=== PATIENT | female | born 1945 | race Caucasian/White ===

== ENCOUNTER 2022-12-08 16:54 | Inpatient (IN) | payer MEDICARE ==
[2022-12-08] MEDS ORDERED: Senokot S 8.6-50 MG TAB PO PRN (20:17)
[2022-12-08 21:20] LABS: Magnesium 2.1 mg/dL (1.6-2.6); Troponin I Less than 0.010 ng/mL (< 0.028)
[2022-12-08] MEDS: Pregabalin 25 MG CAP PO SCH (22:25)
[2022-12-08] MEDS: Zinc Oxide 56.7 GM TUBE TP SCH (22:26)
[2022-12-08] MEDS: Sodium Chloride 0.9% 1,000 ML IV SCH (22:26)
[2022-12-08] MEDS: Carvedilol 25 MG TAB PO SCH (22:26)
[2022-12-08] MEDS: Atorvastatin Calcium 40 MG TAB PO SCH (22:26)
[2022-12-09 04:58] LABS: #Basophils 0.1 10x3/uL (0.0-0.2); #Eosinphils 0.1 10x3/uL (0.0-0.5); #Monocytes 0.9 10x3/uL (0.0-1.1); %Basophils 0.8 % (0.0-2.0); %Eosinophils 1.3 % (0.0-6.0); %Lymphocytes 16.2 % (18.0-47.0); %Monocytes 8.7 % (0.0-10.0); %Neutrophils 72.5 % (40.0-75.0); Hemoglobin 9.9 g/dL (12.0-15.5); Mean Corpuscular HGB CONC 32.9 g/dL (32.0-36.0); Mean Corpuscular Hemoglobin 28.9 pg (27.0-33.0); Mean Corpuscular Volume 87.8 fl (81.6-98.3); Mean Platelet Volume 10.7 fl (7.4-10.4); Platelet Count 298 10x3/uL (150-450); RBC Distribution Width 16.2 % (11.5-14.5); Red Blood Cell (RBC) Count 3.43 10x6/uL (3.90-5.03); White Blood Cell (WBC) Count 9.7 10x3/uL (3.5-10.5)
[2022-12-09 05:13] LABS: Anion Gap 14 mmol/L (10-20); BUN (Urea Nitrogen) 23 mg/dL (9.8-20.1); Calc. Creatinine Clearance 31 mL/min (70-130); Calcium 7.4 mg/dL (7.8-10.44); Carbon Dioxide 24 mmol/L (23-31); Cardiac Risk 4.1 (Less than 4.5); Chloride 107 mmol/L (98-107); Cholesterol 103 mg/dl (< 200 Desired); Estimated GFR 26; Glucose 94 mg/dL (83-110); HDL Cholesterol 25 mg/dL (>60 Neg Risk); LDL Cholesterol, Calculated 59 mg/dL; Magnesium 2.1 mg/dL (1.6-2.6); Potassium 4.1 mmol/L (3.5-5.1); Sodium 141 mmol/L (136-145); Triglycerides 96 mg/dL (Less than 150)
[2022-12-09] MEDS: Levothyroxine Sodium 100 MCG TAB PO SCH (06:30)
[2022-12-09] MEDS: Atorvastatin Calcium 40 MG TAB PO SCH ×2 (07:22→22:15)
[2022-12-09] MEDS: Carvedilol 25 MG TAB PO SCH ×3 (07:23→22:16)
[2022-12-09] MEDS: Pregabalin 25 MG CAP PO SCH ×4 (07:23→22:15)
[2022-12-09] MEDS: Aspirin 81 mg Enteric Coated Tablet PO SCH (11:19)
[2022-12-09] MEDS: Citalopram 20 MG TAB PO SCH (11:19)
[2022-12-09] MEDS: Polyethylene Glycol 3350 17 GM Packet PO SCH (11:19)
[2022-12-09] MEDS: Sodium Chloride 0.9% 1,000 ML IV SCH (11:23)
[2022-12-09] MEDS: Zinc Oxide 56.7 GM TUBE TP SCH ×3 (11:23→22:16)
[2022-12-09] MEDS: Acetaminophen 325 MG TAB PO PRN (13:11)
[2022-12-10 04:28] LABS: #Basophils 0.1 10x3/uL (0.0-0.2); #Eosinphils 0.1 10x3/uL (0.0-0.5); #Neutrophils 5.5 10x3/uL (1.5-8.4); %Basophils 1.4 % (0.0-2.0); %Eosinophils 1.5 % (0.0-6.0); %Lymphocytes 17.9 % (18.0-47.0); %Monocytes 11.8 % (0.0-10.0); Hemoglobin 9.2 g/dL (12.0-15.5); Mean Corpuscular HGB CONC 32.5 g/dL (32.0-36.0); Mean Corpuscular Hemoglobin 28.6 pg (27.0-33.0); Mean Corpuscular Volume 87.9 fl (81.6-98.3); Mean Platelet Volume 11.1 fl (7.4-10.4); Platelet Count 269 10x3/uL (150-450); RBC Distribution Width 16.2 % (11.5-14.5); Red Blood Cell (RBC) Count 3.22 10x6/uL (3.90-5.03); White Blood Cell (WBC) Count 8.1 10x3/uL (3.5-10.5)
[2022-12-10 04:39] LABS: Anion Gap 13 mmol/L (10-20); BUN (Urea Nitrogen) 23 mg/dL (9.8-20.1); Calc. Creatinine Clearance 31 mL/min (70-130); Calcium 7.2 mg/dL (7.8-10.44); Carbon Dioxide 22 mmol/L (23-31); Chloride 109 mmol/L (98-107); Estimated GFR 26; Glucose 83 mg/dL (83-110); Potassium 3.9 mmol/L (3.5-5.1); Sodium 140 mmol/L (136-145)
[2022-12-10 04:45] LABS: Troponin I Less than 0.010 ng/mL (< 0.028)
[2022-12-10] MEDS: Levothyroxine Sodium 100 MCG TAB PO SCH (05:03)
[2022-12-10] MEDS ORDERED: Fentanyl 100 MCG/2 ML VIAL SLOW IVP SCH (05:45)
[2022-12-10] MEDS ORDERED: Gabapentin 100 MG CAP PO SCH (09:00)
[2022-12-10] MEDS: Zinc Oxide 56.7 GM TUBE TP SCH ×2 (10:20→14:49)
[2022-12-10] MEDS: Citalopram 20 MG TAB PO SCH (10:22)
[2022-12-10] MEDS: Pregabalin 50 MG CAP PO SCH ×3 (10:22→20:56)
[2022-12-10] MEDS: Polyethylene Glycol 3350 17 GM Packet PO SCH (10:22)
[2022-12-10] MEDS: Carvedilol 25 MG TAB PO SCH ×2 (10:22→20:56)
[2022-12-10] MEDS: Aspirin 81 mg Enteric Coated Tablet PO SCH (10:22)
[2022-12-10 10:38] LABS: Bilirubin Neg (Negative); Blood, Urine Negative (Negative); Clarity Clear (Clear); Glucose, Urine (Dipstick) Normal (Negative); Ketone, Urine Negative (Negative); Leukocyte 25 (Negative); Nitrite Negative (Negative); Protein, Urine (Dipstick) 100 mg/dl (Neg-Trace); Specific Gravity, Urine 1.015 (1.005-1.030)
[2022-12-10 10:49] LABS: Bacteria/HPF 3+ HPF (None Seen); CAUTI Indications for Culture Alt mental st,lethar; RBC/HPF 0-3 HPF (0-3); WBC/HPF 0-3 HPF (0-3)
[2022-12-10 10:51] LABS: Urine Culture Reflex No No
[2022-12-10] MEDS: cefTRIAXone\\ROCEPHIN 1 GM in Sodium Chloride 0.9% 100 ML IVPB SCH (13:48)
[2022-12-10] MEDS: Atorvastatin Calcium 40 MG TAB PO SCH (20:56)
[2022-12-10] MEDS: Acetaminophen 325 MG TAB PO PRN (20:56)
[2022-12-11] MEDS: Zinc Oxide 56.7 GM TUBE TP SCH ×4 (00:20→22:27)
[2022-12-11] MEDS: Albumin 25% 25 GM/100 ML BOT IVPB SCH ×5 (00:26→22:27)
[2022-12-11] MEDS: Levothyroxine Sodium 100 MCG TAB PO SCH (06:20)
[2022-12-11 08:47] LABS: #Basophils 0.1 10x3/uL (0.0-0.2); #Eosinphils 0.1 10x3/uL (0.0-0.5); #Monocytes 0.8 10x3/uL (0.0-1.1); #Neutrophils 4.6 10x3/uL (1.5-8.4); %Basophils 0.9 % (0.0-2.0); %Eosinophils 0.9 % (0.0-6.0); %Lymphocytes 21.1 % (18.0-47.0); %Monocytes 11.7 % (0.0-10.0); Hemoglobin 8.4 g/dL (12.0-15.5); Mean Corpuscular HGB CONC 32.7 g/dL (32.0-36.0); Mean Corpuscular Hemoglobin 28.8 pg (27.0-33.0); Mean Platelet Volume 11.1 fl (7.4-10.4); Platelet Count 209 10x3/uL (150-450); RBC Distribution Width 16.4 % (11.5-14.5); Red Blood Cell (RBC) Count 2.92 10x6/uL (3.90-5.03)
[2022-12-11 08:57] LABS: Anion Gap 15 mmol/L (10-20); BUN (Urea Nitrogen) 19 mg/dL (9.8-20.1); Calc. Creatinine Clearance 33 mL/min (70-130); Carbon Dioxide 20 mmol/L (23-31); Chloride 109 mmol/L (98-107); Potassium 4.1 mmol/L (3.5-5.1); Sodium 140 mmol/L (136-145)
[2022-12-11 08:58] LABS: Calcium 7.5 mg/dL (7.8-10.44); Estimated GFR 28; Glucose 99 mg/dL (83-110)
[2022-12-11] MEDS ORDERED: valACYclovir 500 MG TAB PO SCH (09:00)
[2022-12-11] MEDS: Pregabalin 50 MG CAP PO SCH ×3 (09:44→22:26)
[2022-12-11] MEDS: Citalopram 20 MG TAB PO SCH (09:45)
[2022-12-11] MEDS: Aspirin 81 mg Enteric Coated Tablet PO SCH (09:45)
[2022-12-11] MEDS: Polyethylene Glycol 3350 17 GM Packet PO SCH (09:49)
[2022-12-11] MEDS: Carvedilol 25 MG TAB PO SCH ×2 (09:49→22:26)
[2022-12-11] MEDS: cefTRIAXone\\ROCEPHIN 1 GM in Sodium Chloride 0.9% 100 ML IVPB SCH (12:47)
[2022-12-11] MEDS: Atorvastatin Calcium 40 MG TAB PO SCH (22:26)
[2022-12-12 03:40] LABS: #Basophils 0.1 10x3/uL (0.0-0.2); #Eosinphils 0.1 10x3/uL (0.0-0.5); #Monocytes 0.8 10x3/uL (0.0-1.1); #Neutrophils 7.5 10x3/uL (1.5-8.4); %Basophils 0.8 % (0.0-2.0); %Eosinophils 0.7 % (0.0-6.0); %Lymphocytes 11.9 % (18.0-47.0); %Neutrophils 77.8 % (40.0-75.0); Hemoglobin 8.6 g/dL (12.0-15.5); Mean Corpuscular HGB CONC 32.7 g/dL (32.0-36.0); Mean Corpuscular Hemoglobin 28.9 pg (27.0-33.0); Mean Corpuscular Volume 88.3 fl (81.6-98.3); Mean Platelet Volume 10.3 fl (7.4-10.4); Platelet Count 209 10x3/uL (150-450); RBC Distribution Width 16.8 % (11.5-14.5); Red Blood Cell (RBC) Count 2.98 10x6/uL (3.90-5.03); White Blood Cell (WBC) Count 9.7 10x3/uL (3.5-10.5)
[2022-12-12 03:49] LABS: Anion Gap 13 mmol/L (10-20); BUN (Urea Nitrogen) 18 mg/dL (9.8-20.1); Calc. Creatinine Clearance 34 mL/min (70-130); Calcium 7.7 mg/dL (7.8-10.44); Carbon Dioxide 23 mmol/L (23-31); Chloride 110 mmol/L (98-107); Estimated GFR 30; Glucose 159 mg/dL (83-110); Potassium 3.7 mmol/L (3.5-5.1); Sodium 142 mmol/L (136-145)
[2022-12-12] MEDS: Albumin 25% 25 GM/100 ML BOT IVPB SCH ×3 (05:40→18:09)
[2022-12-12] MEDS: Levothyroxine Sodium 100 MCG TAB PO SCH (05:40)
[2022-12-12] MEDS: Citalopram 20 MG TAB PO SCH (10:00)
[2022-12-12] MEDS: Pregabalin 50 MG CAP PO SCH ×3 (10:01→21:15)
[2022-12-12] MEDS: Aspirin 81 mg Enteric Coated Tablet PO SCH (10:01)
[2022-12-12] MEDS: Polyethylene Glycol 3350 17 GM Packet PO SCH (10:03)
[2022-12-12] MEDS: Zinc Oxide 56.7 GM TUBE TP SCH ×3 (10:03→21:46)
[2022-12-12] MEDS: Carvedilol 25 MG TAB PO SCH ×2 (10:04→21:16)
[2022-12-12] MEDS: Lactated Ringer's 1,000 ML IV SCH ×2 (10:07→21:25)
[2022-12-12] MEDS: cefTRIAXone\\ROCEPHIN 1 GM in Sodium Chloride 0.9% 100 ML IVPB SCH (12:32)
[2022-12-12] MEDS ORDERED: NIFEdipine 10 MG CAP PO SCH (21:00)
[2022-12-12] MEDS: Atorvastatin Calcium 40 MG TAB PO SCH (21:16)
[2022-12-13] MEDS: Acetaminophen 325 MG TAB PO PRN (03:50)
[2022-12-13 05:07] LABS: #Monocytes 0.5 10x3/uL (0.0-1.1); #Neutrophils 7.3 10x3/uL (1.5-8.4); %Basophils 0.3 % (0.0-2.0); %Eosinophils 0.2 % (0.0-6.0); %Lymphocytes 14.9 % (18.0-47.0); %Monocytes 5.3 % (0.0-10.0); %Neutrophils 78.5 % (40.0-75.0); Hemoglobin 8.5 g/dL (12.0-15.5); Mean Corpuscular HGB CONC 32.6 g/dL (32.0-36.0); Mean Corpuscular Hemoglobin 28.7 pg (27.0-33.0); Mean Corpuscular Volume 88.2 fl (81.6-98.3); Mean Platelet Volume 11.4 fl (7.4-10.4); Platelet Count 205 10x3/uL (150-450); RBC Distribution Width 16.9 % (11.5-14.5); Red Blood Cell (RBC) Count 2.96 10x6/uL (3.90-5.03); White Blood Cell (WBC) Count 9.3 10x3/uL (3.5-10.5)
[2022-12-13 05:08] LABS: Anion Gap 16 mmol/L (10-20); BUN (Urea Nitrogen) 22 mg/dL (9.8-20.1); Calc. Creatinine Clearance 31 mL/min (70-130); Calcium 8.3 mg/dL (7.8-10.44); Carbon Dioxide 23 mmol/L (23-31); Chloride 107 mmol/L (98-107); Estimated GFR 27; Glucose 145 mg/dL (83-110); Potassium 3.5 mmol/L (3.5-5.1); Sodium 142 mmol/L (136-145)
[2022-12-13] MEDS: Levothyroxine Sodium 100 MCG TAB PO SCH (05:36)
[2022-12-13] MEDS: Albumin 25% 25 GM/100 ML BOT IVPB SCH ×4 (06:30→23:12)
[2022-12-13] MEDS: Aspirin 81 mg Enteric Coated Tablet PO SCH (09:45)
[2022-12-13] MEDS: Pregabalin 50 MG CAP PO SCH ×3 (10:41→21:30)
[2022-12-13] MEDS: Polyethylene Glycol 3350 17 GM Packet PO SCH (10:41)
[2022-12-13] MEDS: NIFEdipine XL 30 MG TAB PO SCH (10:42)
[2022-12-13] MEDS: Citalopram 20 MG TAB PO SCH (10:42)
[2022-12-13] MEDS: Carvedilol 25 MG TAB PO SCH ×2 (10:42→21:30)
[2022-12-13] MEDS: Lactated Ringer's 1,000 ML IV SCH ×2 (10:43→21:29)
[2022-12-13] MEDS: Zinc Oxide 56.7 GM TUBE TP SCH ×3 (10:43→21:44)
[2022-12-13] MEDS ORDERED: cefTRIAXone\\ROCEPHIN 1 GM VIAL ONE (12:31)
[2022-12-13] MEDS: cefTRIAXone\\ROCEPHIN 1 GM in Sodium Chloride 0.9% 100 ML IVPB SCH (12:35)
[2022-12-13] MEDS: Atorvastatin Calcium 40 MG TAB PO SCH (21:30)
[2022-12-14 05:05] LABS: Anion Gap 15 mmol/L (10-20); BUN (Urea Nitrogen) 28 mg/dL (9.8-20.1); Calc. Creatinine Clearance 28 mL/min (70-130); Calcium 8.4 mg/dL (7.8-10.44); Carbon Dioxide 22 mmol/L (23-31); Chloride 110 mmol/L (98-107); Estimated GFR 23; Glucose 118 mg/dL (83-110); Potassium 3.2 mmol/L (3.5-5.1); Sodium 144 mmol/L (136-145)
[2022-12-14 05:32] LABS: #Monocytes 0.8 10x3/uL (0.0-1.1); #Neutrophils 5.8 10x3/uL (1.5-8.4); %Basophils 0.5 % (0.0-2.0); %Eosinophils 0.2 % (0.0-6.0); %Lymphocytes 19.4 % (18.0-47.0); %Monocytes 9.7 % (0.0-10.0); %Neutrophils 69.6 % (40.0-75.0); Hemoglobin 7.4 g/dL (12.0-15.5); Mean Corpuscular HGB CONC 32.9 g/dL (32.0-36.0); Mean Corpuscular Hemoglobin 29.1 pg (27.0-33.0); Mean Corpuscular Volume 88.6 fl (81.6-98.3); Mean Platelet Volume 11.8 fl (7.4-10.4); Platelet Count 160 10x3/uL (150-450); RBC Distribution Width 17.2 % (11.5-14.5); Red Blood Cell (RBC) Count 2.54 10x6/uL (3.90-5.03); White Blood Cell (WBC) Count 8.3 10x3/uL (3.5-10.5)
[2022-12-14] MEDS: Levothyroxine Sodium 100 MCG TAB PO SCH (05:34)
[2022-12-14] MEDS: Lactated Ringer's 1,000 ML IV SCH ×2 (08:49→15:25)
[2022-12-14] MEDS: Carvedilol 25 MG TAB PO SCH (08:51)
[2022-12-14] MEDS: NIFEdipine XL 30 MG TAB PO SCH (08:51)
[2022-12-14] MEDS: Pregabalin 50 MG CAP PO SCH ×3 (08:52→21:24)
[2022-12-14] MEDS: Aspirin 81 mg Enteric Coated Tablet PO SCH (08:53)
[2022-12-14] MEDS: Citalopram 20 MG TAB PO SCH (08:53)
[2022-12-14] MEDS: Polyethylene Glycol 3350 17 GM Packet PO SCH (09:47)
[2022-12-14] MEDS: Zinc Oxide 56.7 GM TUBE TP SCH ×3 (09:47→21:25)
[2022-12-14] MEDS: cefTRIAXone\\ROCEPHIN 1 GM in Sodium Chloride 0.9% 100 ML IVPB SCH (13:43)
[2022-12-14 13:50] LABS: ALT (SGPT) 6 U/L (8-55); AST (SGOT) 14 U/L (5-34); Albumin 4.1 g/dL (3.4-4.8); Alkaline Phosphatase 62 U/L (40-110); Anion Gap 16 mmol/L (10-20); BUN (Urea Nitrogen) 28 mg/dL (9.8-20.1); Bilirubin, Total 1.3 mg/dL (0.2-1.2); Calc. Creatinine Clearance 28 mL/min (70-130); Calcium 8.3 mg/dL (7.8-10.44); Carbon Dioxide 22 mmol/L (23-31); Chloride 111 mmol/L (98-107); Estimated GFR 23; Glucose 134 mg/dL (83-110); Potassium 3.1 mmol/L (3.5-5.1); Protein, Total 6.1 g/dL (5.8-8.1); Sodium 146 mmol/L (136-145)
[2022-12-14] MEDS: Atorvastatin Calcium 40 MG TAB PO SCH (21:25)
[2022-12-15] MEDS ORDERED: Levothyroxine Sodium 100 MCG TAB ONE (05:32)
[2022-12-15] MEDS: Levothyroxine Sodium 100 MCG TAB PO SCH (05:35)
[2022-12-15 05:47] LABS: #Eosinphils 0.1 10x3/uL (0.0-0.5); #Monocytes 0.9 10x3/uL (0.0-1.1); #Neutrophils 7.7 10x3/uL (1.5-8.4); %Basophils 0.3 % (0.0-2.0); %Eosinophils 0.5 % (0.0-6.0); %Monocytes 8.3 % (0.0-10.0); %Neutrophils 73.1 % (40.0-75.0); Hemoglobin 8.6 g/dL (12.0-15.5); Mean Corpuscular HGB CONC 33.1 g/dL (32.0-36.0); Mean Corpuscular Hemoglobin 29.4 pg (27.0-33.0); Mean Corpuscular Volume 88.7 fl (81.6-98.3); Mean Platelet Volume 11.9 fl (7.4-10.4); Platelet Count 170 10x3/uL (150-450); RBC Distribution Width 17.9 % (11.5-14.5); Red Blood Cell (RBC) Count 2.93 10x6/uL (3.90-5.03); White Blood Cell (WBC) Count 10.6 10x3/uL (3.5-10.5)
[2022-12-15 05:57] LABS: ALT (SGPT) 6 U/L (8-55); AST (SGOT) 12 U/L (5-34); Albumin 4.1 g/dL (3.4-4.8); Alkaline Phosphatase 66 U/L (40-110); Anion Gap 17 mmol/L (10-20); BUN (Urea Nitrogen) 31 mg/dL (9.8-20.1); Bilirubin, Total 1.4 mg/dL (0.2-1.2); Calc. Creatinine Clearance 27 mL/min (70-130); Calcium 8.5 mg/dL (7.8-10.44); Carbon Dioxide 21 mmol/L (23-31); Chloride 112 mmol/L (98-107); Estimated GFR 22; Globulin 2.2 g/dL (2.4-3.5); Glucose 101 mg/dL (83-110); Potassium 3.2 mmol/L (3.5-5.1); Protein, Total 6.3 g/dL (5.8-8.1); Sodium 147 mmol/L (136-145)
[2022-12-15] MEDS ORDERED: Potassium Chloride 20 MEQ in Premix Bag 1 BAG IVPB SCH (08:00)
[2022-12-15] MEDS ORDERED: Furosemide 40 MG/4 ML VIAL SLOW IVP SCH (08:00)
[2022-12-15] MEDS: Polyethylene Glycol 3350 17 GM Packet PO SCH (08:33)
[2022-12-15] MEDS: Citalopram 20 MG TAB PO SCH (08:36)
[2022-12-15] MEDS: Aspirin 81 mg Enteric Coated Tablet PO SCH (08:37)
[2022-12-15] MEDS: Zinc Oxide 56.7 GM TUBE TP SCH ×2 (10:04→17:00)
[2022-12-15] MEDS: Pregabalin 50 MG CAP PO SCH (12:31)
[2022-12-15] MEDS: Carvedilol 25 MG TAB PO SCH (18:35)
[2022-12-15] MEDS: Atorvastatin Calcium 40 MG TAB PO SCH (22:24)
[2022-12-15] MEDS: Acetaminophen 325 MG TAB PO PRN (22:24)
[2022-12-16] MEDS: Zinc Oxide 56.7 GM TUBE TP SCH ×4 (03:30→22:02)
[2022-12-16] MEDS: Levothyroxine Sodium 100 MCG TAB PO SCH (07:10)
[2022-12-16] MEDS: Pregabalin 50 MG CAP PO SCH (09:11)
[2022-12-16] MEDS: Carvedilol 25 MG TAB PO SCH ×2 (09:12→21:51)
[2022-12-16] MEDS: Aspirin 81 mg Enteric Coated Tablet PO SCH (09:12)
[2022-12-16] MEDS: Polyethylene Glycol 3350 17 GM Packet PO SCH (09:42)
[2022-12-16] MEDS ORDERED: Morphine 2 MG/ML VIAL SLOW IVP SCH (18:00)
[2022-12-16] MEDS: Atorvastatin Calcium 40 MG TAB PO SCH (21:51)
[2022-12-17 05:04] LABS: Anion Gap 18 mmol/L (10-20); BUN (Urea Nitrogen) 50 mg/dL (9.8-20.1); Bilirubin, Total 1.1 mg/dL (0.2-1.2); Calc. Creatinine Clearance 26 mL/min (70-130); Calcium 8.2 mg/dL (7.8-10.44); Carbon Dioxide 21 mmol/L (23-31); Chloride 110 mmol/L (98-107); Estimated GFR 21; Glucose 109 mg/dL (83-110); Potassium 3.3 mmol/L (3.5-5.1); Sodium 146 mmol/L (136-145)
[2022-12-17 05:05] LABS: ALT (SGPT) 7 U/L (8-55); AST (SGOT) 11 U/L (5-34)
[2022-12-17] MEDS: Levothyroxine Sodium 100 MCG TAB PO SCH (05:56)
[2022-12-17] MEDS: Polyethylene Glycol 3350 17 GM Packet PO SCH ×2 (09:00→09:29)
[2022-12-17] MEDS: NIFEdipine XL 30 MG TAB PO SCH (09:28)
[2022-12-17] MEDS: Carvedilol 25 MG TAB PO SCH ×2 (09:28→21:13)
[2022-12-17] MEDS: Aspirin 81 mg Enteric Coated Tablet PO SCH (09:28)
[2022-12-17] MEDS: Pregabalin 50 MG CAP PO SCH (09:28)
[2022-12-17] MEDS: Zinc Oxide 56.7 GM TUBE TP SCH ×3 (09:29→21:13)
[2022-12-17] MEDS: Lactated Ringer's 1,000 ML IV SCH (17:53)
[2022-12-17] MEDS: Atorvastatin Calcium 40 MG TAB PO SCH (21:13)
[2022-12-17 23:06] LABS: Bilirubin Neg (Negative); Blood, Urine 250 (Negative); Clarity Slightly Cloudy (Clear); Glucose, Urine (Dipstick) Normal (Negative); Ketone, Urine Negative (Negative); Leukocyte 500 (Negative); Nitrite Negative (Negative); Protein, Urine (Dipstick) 500 mg/dl (Neg-Trace); Specific Gravity, Urine 1.015 (1.005-1.030); Urobilinogen Normal mg/dL (Less than 2)
[2022-12-17 23:19] LABS: Bacteria/HPF Rare-Few HPF (None Seen); Squamous Epithelial 0-3 HPF (0-3); WBC/HPF 21-50 HPF (0-3)
[2022-12-18 00:59] VITALS: BMI 29.9
[2022-12-18 05:46] LABS: #Eosinphils 0.4 10x3/uL (0.0-0.5); #Monocytes 0.9 10x3/uL (0.0-1.1); #Neutrophils 5.9 10x3/uL (1.5-8.4); %Basophils 0.4 % (0.0-2.0); %Eosinophils 3.9 % (0.0-6.0); %Lymphocytes 22.6 % (18.0-47.0); %Monocytes 9.1 % (0.0-10.0); %Neutrophils 63.2 % (40.0-75.0); Hemoglobin 8.5 g/dL (12.0-15.5); Mean Corpuscular HGB CONC 33.2 g/dL (32.0-36.0); Mean Corpuscular Hemoglobin 29.4 pg (27.0-33.0); Mean Corpuscular Volume 88.6 fl (81.6-98.3); Mean Platelet Volume 11.8 fl (7.4-10.4); Platelet Count 160 10x3/uL (150-450); RBC Distribution Width 18.5 % (11.5-14.5); Red Blood Cell (RBC) Count 2.89 10x6/uL (3.90-5.03); White Blood Cell (WBC) Count 9.4 10x3/uL (3.5-10.5)
[2022-12-18] MEDS: Levothyroxine Sodium 100 MCG TAB PO SCH (05:50)
[2022-12-18 05:54] LABS: Anion Gap 14 mmol/L (10-20); BUN (Urea Nitrogen) 59 mg/dL (9.8-20.1); Calc. Creatinine Clearance 25 mL/min (70-130); Calcium 8.2 mg/dL (7.8-10.44); Carbon Dioxide 21 mmol/L (23-31); Chloride 109 mmol/L (98-107); Estimated GFR 20; Glucose 105 mg/dL (83-110); Potassium 3.3 mmol/L (3.5-5.1); Sodium 141 mmol/L (136-145)
[2022-12-18] MEDS ORDERED: Potassium Chloride 20 MEQ TAB PO SCH ×2 (08:00→14:00)
[2022-12-18] MEDS: Polyethylene Glycol 3350 17 GM Packet PO SCH (10:43)
[2022-12-18] MEDS: Carvedilol 25 MG TAB PO SCH ×2 (12:00→20:02)
[2022-12-18] MEDS: Pregabalin 50 MG CAP PO SCH (12:00)
[2022-12-18] MEDS: Aspirin 81 mg Enteric Coated Tablet PO SCH (12:00)
[2022-12-18] MEDS: NIFEdipine XL 30 MG TAB PO SCH (13:09)
[2022-12-18] MEDS: Zinc Oxide 56.7 GM TUBE TP SCH ×3 (13:10→20:02)
[2022-12-18] MEDS: Lactated Ringer's 1,000 ML IV SCH (17:30)
[2022-12-18] MEDS: Atorvastatin Calcium 40 MG TAB PO SCH (20:02)
[2022-12-19] MEDS ORDERED: Furosemide 20 MG/2 ML VIAL SLOW IVP SCH (04:15)
[2022-12-19] MEDS: Levothyroxine Sodium 100 MCG TAB PO SCH (05:42)
[2022-12-19 05:57] LABS: Anion Gap 15 mmol/L (10-20); BUN (Urea Nitrogen) 51 mg/dL (9.8-20.1); Calc. Creatinine Clearance 28 mL/min (70-130); Calcium 8.3 mg/dL (7.8-10.44); Carbon Dioxide 22 mmol/L (23-31); Chloride 110 mmol/L (98-107); Estimated GFR 23; Glucose 132 mg/dL (83-110); Sodium 143 mmol/L (136-145)
[2022-12-19 06:11] LABS: #Basophils 0.1 10x3/uL (0.0-0.2); #Eosinphils 0.3 10x3/uL (0.0-0.5); #Monocytes 0.8 10x3/uL (0.0-1.1); #Neutrophils 7.2 10x3/uL (1.5-8.4); %Basophils 0.6 % (0.0-2.0); %Eosinophils 3.4 % (0.0-6.0); %Lymphocytes 15.1 % (18.0-47.0); %Monocytes 7.8 % (0.0-10.0); %Neutrophils 72.2 % (40.0-75.0); Hemoglobin 9.2 g/dL (12.0-15.5); Mean Corpuscular HGB CONC 32.6 g/dL (32.0-36.0); Mean Corpuscular Hemoglobin 29.1 pg (27.0-33.0); Mean Corpuscular Volume 89.2 fl (81.6-98.3); Platelet Count 177 10x3/uL (150-450); RBC Distribution Width 18.7 % (11.5-14.5); Red Blood Cell (RBC) Count 3.16 10x6/uL (3.90-5.03)
[2022-12-19] MEDS: Lactated Ringer's 1,000 ML IV SCH (09:22)
[2022-12-19] MEDS: NIFEdipine XL 30 MG TAB PO SCH (09:24)
[2022-12-19] MEDS: Aspirin 81 mg Enteric Coated Tablet PO SCH (09:24)
[2022-12-19] MEDS: Polyethylene Glycol 3350 17 GM Packet PO SCH (09:25)
[2022-12-19] MEDS: Pregabalin 50 MG CAP PO SCH (09:25)
[2022-12-19] MEDS: Carvedilol 25 MG TAB PO SCH ×2 (09:25→20:17)
[2022-12-19] MEDS: Zinc Oxide 56.7 GM TUBE TP SCH ×3 (09:26→20:17)
[2022-12-19] MEDS: Atorvastatin Calcium 40 MG TAB PO SCH (20:17)
[2022-12-20] MEDS: Lactated Ringer's 1,000 ML IV SCH ×2 (03:30→18:44)
[2022-12-20 05:28] LABS: Anion Gap 15 mmol/L (10-20); BUN (Urea Nitrogen) 44 mg/dL (9.8-20.1); Calc. Creatinine Clearance 28 mL/min (70-130); Carbon Dioxide 21 mmol/L (23-31); Chloride 111 mmol/L (98-107); Estimated GFR 23; Glucose 104 mg/dL (83-110); Potassium 3.8 mmol/L (3.5-5.1); Sodium 143 mmol/L (136-145)
[2022-12-20 05:49] LABS: #Basophils 0.1 10x3/uL (0.0-0.2); #Eosinphils 0.4 10x3/uL (0.0-0.5); #Monocytes 0.8 10x3/uL (0.0-1.1); #Neutrophils 6.4 10x3/uL (1.5-8.4); %Basophils 0.5 % (0.0-2.0); %Eosinophils 4.4 % (0.0-6.0); %Lymphocytes 16.4 % (18.0-47.0); %Monocytes 8.3 % (0.0-10.0); %Neutrophils 69.7 % (40.0-75.0); Mean Corpuscular HGB CONC 32.9 g/dL (32.0-36.0); Mean Corpuscular Hemoglobin 29.4 pg (27.0-33.0); Mean Corpuscular Volume 89.3 fl (81.6-98.3); Mean Platelet Volume 11.9 fl (7.4-10.4); Platelet Count 166 10x3/uL (150-450); RBC Distribution Width 19.3 % (11.5-14.5); Red Blood Cell (RBC) Count 2.72 10x6/uL (3.90-5.03); White Blood Cell (WBC) Count 9.1 10x3/uL (3.5-10.5)
[2022-12-20] MEDS: Levothyroxine Sodium 100 MCG TAB PO SCH (06:21)
[2022-12-20] MEDS ORDERED: Megestrol Acetate 400 MG/10 ML UDCUP PO SCH (10:30)
[2022-12-20] MEDS: NIFEdipine XL 30 MG TAB PO SCH (10:39)
[2022-12-20] MEDS: Aspirin 81 mg Enteric Coated Tablet PO SCH (10:39)
[2022-12-20] MEDS: Citalopram 20 MG TAB PO SCH (10:39)
[2022-12-20] MEDS: Pregabalin 50 MG CAP PO SCH (10:39)
[2022-12-20] MEDS: Carvedilol 25 MG TAB PO SCH ×2 (10:40→21:35)
[2022-12-20] MEDS: Polyethylene Glycol 3350 17 GM Packet PO SCH (10:40)
[2022-12-20] MEDS: Zinc Oxide 56.7 GM TUBE TP SCH ×3 (10:40→21:35)
[2022-12-20] MEDS: Atorvastatin Calcium 40 MG TAB PO SCH (21:35)
[2022-12-21] MEDS: Levothyroxine Sodium 100 MCG TAB PO SCH (05:49)
[2022-12-21 06:24] LABS: #Basophils 0.1 10x3/uL (0.0-0.2); #Eosinphils 0.4 10x3/uL (0.0-0.5); #Monocytes 0.8 10x3/uL (0.0-1.1); #Neutrophils 5.9 10x3/uL (1.5-8.4); %Basophils 0.8 % (0.0-2.0); %Lymphocytes 17.7 % (18.0-47.0); %Monocytes 8.8 % (0.0-10.0); %Neutrophils 68.1 % (40.0-75.0); Hemoglobin 8.6 g/dL (12.0-15.5); Mean Corpuscular HGB CONC 31.9 g/dL (32.0-36.0); Mean Corpuscular Hemoglobin 28.8 pg (27.0-33.0); Mean Corpuscular Volume 90.3 fl (81.6-98.3); Mean Platelet Volume 11.3 fl (7.4-10.4); Platelet Count 180 10x3/uL (150-450); RBC Distribution Width 19.4 % (11.5-14.5); Red Blood Cell (RBC) Count 2.99 10x6/uL (3.90-5.03); White Blood Cell (WBC) Count 8.7 10x3/uL (3.5-10.5)
[2022-12-21 06:38] LABS: Anion Gap 17 mmol/L (10-20); BUN (Urea Nitrogen) 39 mg/dL (9.8-20.1); Calc. Creatinine Clearance 30 mL/min (70-130); Calcium 8.2 mg/dL (7.8-10.44); Carbon Dioxide 20 mmol/L (23-31); Chloride 110 mmol/L (98-107); Estimated GFR 25; Glucose 120 mg/dL (83-110); Potassium 3.9 mmol/L (3.5-5.1); Sodium 143 mmol/L (136-145)
[2022-12-21] MEDS ORDERED: Furosemide 40 MG/4 ML VIAL SLOW IVP SCH (08:00)
[2022-12-21] MEDS ORDERED: Megestrol Acetate 400 MG/10 ML UDCUP PO SCH (09:00)
[2022-12-21] MEDS ORDERED: Sodium Bicarbonate Tab 325 MG TAB PO SCH (09:30)
[2022-12-21] MEDS: Pregabalin 50 MG CAP PO SCH (10:46)
[2022-12-21] MEDS: Citalopram 20 MG TAB PO SCH (10:47)
[2022-12-21] MEDS: NIFEdipine XL 30 MG TAB PO SCH (10:47)
[2022-12-21] MEDS: Aspirin 81 mg Enteric Coated Tablet PO SCH (10:48)
[2022-12-21] MEDS: Carvedilol 25 MG TAB PO SCH ×2 (10:48→21:06)
[2022-12-21] MEDS: Polyethylene Glycol 3350 17 GM Packet PO SCH (10:51)
[2022-12-21] MEDS: Zinc Oxide 56.7 GM TUBE TP SCH ×3 (10:52→21:06)
[2022-12-21] MEDS: Sodium Bicarbonate Tab 325 MG TAB PO SCH ×2 (16:12→21:05)
[2022-12-21] MEDS: Atorvastatin Calcium 40 MG TAB PO SCH (21:06)
[2022-12-22 05:37] LABS: Anion Gap 16 mmol/L (10-20); BUN (Urea Nitrogen) 38 mg/dL (9.8-20.1); Calc. Creatinine Clearance 28 mL/min (70-130); Carbon Dioxide 23 mmol/L (23-31); Chloride 110 mmol/L (98-107); Estimated GFR 24; Glucose 99 mg/dL (83-110); Iron 24 ug/dL (50-170); Iron Binding Capacity, Total 146 mcg/dL (265-497); Phosphorus 2.9 mg/dL (2.3-4.7); Potassium 3.7 mmol/L (3.5-5.1); Sodium 145 mmol/L (136-145)
[2022-12-22] MEDS: Levothyroxine Sodium 100 MCG TAB PO SCH (05:55)
[2022-12-22] MEDS ORDERED: Megestrol Acetate 400 MG/10 ML UDCUP PO SCH (09:00)
[2022-12-22] MEDS: NIFEdipine XL 30 MG TAB PO SCH (10:11)
[2022-12-22] MEDS: Aspirin 81 mg Enteric Coated Tablet PO SCH (10:12)
[2022-12-22] MEDS: Carvedilol 25 MG TAB PO SCH (10:12)
[2022-12-22] MEDS: Citalopram 20 MG TAB PO SCH (10:12)
[2022-12-22] MEDS: Pregabalin 50 MG CAP PO SCH (10:12)
[2022-12-22] MEDS: Sodium Bicarbonate Tab 325 MG TAB PO SCH (10:12)
[2022-12-22] MEDS: Zinc Oxide 56.7 GM TUBE TP SCH (10:25)
[2022-12-22] MEDS: Polyethylene Glycol 3350 17 GM Packet PO SCH (10:25)
[2022-12-22] MEDS ORDERED: Iron, Sodium Ferric Gluconate 250 MG in Sodium Chloride 0.9% 250 ML 250 ML IVPB SCH (11:00)
[2022-12-22 16:19] VITALS: BP 112/53; TEMP 98.3
== END 2022-12-22 17:05 | disposition home health service (06) | DRG 64 ==
LOC: CSHTELE 16:54 → INTOOBSV 16:54 → CSHTELE 17:24 → OBSVTOIN 12-10 12:25
PROVIDERS: ADMIT Internal Medicine; ATTEND Internal Medicine
PROC: 30233J1 Transfusion of Nonautologous Serum Albumin into Peripheral Vein, Percutaneous Approach (ICD-10-PCS; principal; 2022-12-10)
DX: I63.9 Cerebral infarction, unspecified (principal); I50.33 Acute on chronic diastolic (congestive) heart failure; J96.21 Acute and chronic respiratory failure with hypoxia; I13.0 Hypertensive heart and chronic kidney disease with heart failure and stage 1 through stage 4 chronic kidney disease, or unspecified chronic kidney disease; N17.9 Acute kidney failure, unspecified; N18.4 Chronic kidney disease, stage 4 (severe); E87.20 Acidosis, unspecified; G93.49 Other encephalopathy; I16.0 Hypertensive urgency; B02.9 Zoster without complications; E78.5 Hyperlipidemia, unspecified; J44.9 Chronic obstructive pulmonary disease, unspecified; C76.2 Malignant neoplasm of abdomen; R41.0 Disorientation, unspecified; F32.A Depression, unspecified; E86.0 Dehydration; R63.8 Other symptoms and signs concerning food and fluid intake; D63.1 Anemia in chronic kidney disease; E87.6 Hypokalemia; R10.9 Unspecified abdominal pain; K57.30 Diverticulosis of large intestine without perforation or abscess without bleeding; R00.1 Bradycardia, unspecified; M06.9 Rheumatoid arthritis, unspecified; E89.0 Postprocedural hypothyroidism; Z20.822 Contact with and (suspected) exposure to COVID-19; Z79.82 Long term (current) use of aspirin; Z79.899 Other long term (current) drug therapy; Z79.890 Hormone replacement therapy; Z86.11 Personal history of tuberculosis; Z98.890 Other specified postprocedural states; Z90.710 Acquired absence of both cervix and uterus; Z90.49 Acquired absence of other specified parts of digestive tract; Z82.49 Family history of ischemic heart disease and other diseases of the circulatory system; Z88.8 Allergy status to other drugs, medicaments and biological substances; Z91.041 Radiographic dye allergy status; Z87.11 Personal history of peptic ulcer disease; Z98.1 Arthrodesis status; Z90.722 Acquired absence of ovaries, bilateral; Z87.891 Personal history of nicotine dependence; Z80.1 Family history of malignant neoplasm of trachea, bronchus and lung; I69.320 Aphasia following cerebral infarction; I69.398 Other sequelae of cerebral infarction; H53.40 Unspecified visual field defects
CPT/HCPCS: 36415; 36416; 70551; 71045; 76705; 78227; 80048; 80053; 80061; 80069; 81001; 82040; 82247; 82274; 82728; 83540; 83550; 83735; 83880; 84145; 84439; 84443; 84450; 84460; 84484; 85025; 87040; 87811; 93005; 93010; 93306; 93880; 94640; 94760; 96372; 96374; 97139; A9537; G0378; J0696; J1650; J1940; J2272; J2916; J3010; J3480; J3490; J7050; J7120; J7611; P9047; U0003; U0005

== ENCOUNTER 2022-12-27 08:20 | Emergency (ER) | payer MEDICARE ==
[2022-12-27 09:29] LABS: #Basophils 0.1 10x3/uL (0.0-0.2); #Eosinphils 0.3 10x3/uL (0.0-0.5); #Monocytes 0.7 10x3/uL (0.0-1.1); #Neutrophils 8.2 10x3/uL (1.5-8.4); %Basophils 0.9 % (0.0-2.0); %Eosinophils 3.2 % (0.0-6.0); %Lymphocytes 10.3 % (18.0-47.0); %Monocytes 6.8 % (0.0-10.0); %Neutrophils 78.2 % (40.0-75.0); Hemoglobin 8.6 g/dL (12.0-15.5); Mean Corpuscular HGB CONC 31.9 g/dL (32.0-36.0); Mean Corpuscular Hemoglobin 29.2 pg (27.0-33.0); Mean Corpuscular Volume 91.5 fl (81.6-98.3); Mean Platelet Volume 11.4 fl (7.4-10.4); Platelet Count 296 10x3/uL (150-450); RBC Distribution Width 20.4 % (11.5-14.5); Red Blood Cell (RBC) Count 2.95 10x6/uL (3.90-5.03); White Blood Cell (WBC) Count 10.5 10x3/uL (3.5-10.5)
[2022-12-27 09:42] LABS: ALT (SGPT) 10 U/L (8-55); AST (SGOT) 14 U/L (5-34); Alkaline Phosphatase 81 U/L (40-110); Anion Gap 16 mmol/L (10-20); BUN (Urea Nitrogen) 40 mg/dL (9.8-20.1); Bilirubin, Total 1.2 mg/dL (0.2-1.2); Calc. Creatinine Clearance 0 mL/min (70-130); Calcium 7.9 mg/dL (7.8-10.44); Carbon Dioxide 23 mmol/L (23-31); Chloride 109 mmol/L (98-107); Estimated GFR 21; Globulin 2.4 g/dL (2.4-3.5); Glucose 110 mg/dL (83-110); Lipase 22 U/L (8-78); Potassium 3.7 mmol/L (3.5-5.1); Protein, Total 5.4 g/dL (5.8-8.1); Sodium 144 mmol/L (136-145)
[2022-12-27 10:57] LABS: Bilirubin Neg (Negative); Blood, Urine 150 (Negative); Clarity Cloudy (Clear); Glucose, Urine (Dipstick) Normal (Negative); Ketone, Urine Negative (Negative); Leukocyte 500 (Negative); Nitrite Negative (Negative); Protein, Urine (Dipstick) 100 mg/dl (Neg-Trace); Specific Gravity, Urine 1.015 (1.005-1.030); Urobilinogen Normal mg/dL (Less than 2)
[2022-12-27 11:28] LABS: WBC/HPF 21-50 HPF (0-3)
[2022-12-27 11:29] LABS: Bacteria/HPF 2+ HPF (None Seen)
== END 2022-12-27 12:29 | disposition home or self-care (01) ==
LOC: CSHERS 08:20
DX: N39.0 Urinary tract infection, site not specified (principal); I13.2 Hypertensive heart and chronic kidney disease with heart failure and with stage 5 chronic kidney disease, or end stage renal disease; N18.4 Chronic kidney disease, stage 4 (severe); I50.9 Heart failure, unspecified; E03.9 Hypothyroidism, unspecified; K21.9 Gastro-esophageal reflux disease without esophagitis; E78.5 Hyperlipidemia, unspecified; E78.00 Pure hypercholesterolemia, unspecified; F17.210 Nicotine dependence, cigarettes, uncomplicated; Z79.899 Other long term (current) drug therapy
CPT/HCPCS: 36415; 71045; 74176; 80053; 81003; 81015; 83605; 83690; 85025; 87077; 87086; 87186

== ENCOUNTER 2023-01-20 05:06 | Inpatient (IN) | payer MEDICARE ==
[2023-01-20 06:25] LABS: SARS-CoV-2 NAA Rapid Test Not Detected (NotDetected)
[2023-01-20 06:39] LABS: #Basophils 0.2 10x3/uL (0.0-0.2); #Eosinphils 0.4 10x3/uL (0.0-0.5); #Monocytes 0.4 10x3/uL (0.0-1.1); #Neutrophils 8.4 10x3/uL (1.5-8.4); %Basophils 1.8 % (0.0-2.0); %Eosinophils 3.7 % (0.0-6.0); %Monocytes 3.8 % (0.0-10.0); %Neutrophils 82.5 % (40.0-75.0); Mean Corpuscular HGB CONC 31.3 g/dL (32.0-36.0); Mean Corpuscular Hemoglobin 30.4 pg (27.0-33.0); Mean Platelet Volume 11.1 fl (7.4-10.4); Platelet Count 271 10x3/uL (150-450); RBC Distribution Width 18.1 % (11.5-14.5); Red Blood Cell (RBC) Count 3.29 10x6/uL (3.90-5.03); White Blood Cell (WBC) Count 10.2 10x3/uL (3.5-10.5)
[2023-01-20] MEDS ORDERED: Furosemide 40 MG/4 ML VIAL ONE (06:39)
[2023-01-20 06:44] LABS: ALT (SGPT) Less than 6 U/L (8-55); Albumin 3.1 g/dL (3.4-4.8); Alkaline Phosphatase 76 U/L (40-110); Anion Gap 17 mmol/L (10-20); BUN (Urea Nitrogen) 45 mg/dL (9.8-20.1); Bilirubin, Total 0.5 mg/dL (0.2-1.2); CK (CPK) 28 U/L (29-168); Calc. Creatinine Clearance 0 mL/min (70-130); Calcium 7.7 mg/dL (7.8-10.44); Carbon Dioxide 18 mmol/L (23-31); Chloride 108 mmol/L (98-107); Estimated GFR 16; Globulin 3.5 g/dL (2.4-3.5); Glucose 150 mg/dL (83-110); Potassium 4.1 mmol/L (3.5-5.1); Protein, Total 6.6 g/dL (5.8-8.1); Sodium 139 mmol/L (136-145)
[2023-01-20 06:58] LABS: AST (SGOT) 7 U/L (5-34)
[2023-01-20] MEDS ORDERED: Ipratropium/Albuterol 3 ML NEB ONE (07:00)
[2023-01-20] MEDS ORDERED: Nitroglycerin 0.4 MG TAB 1 EACH ONE (07:35)
[2023-01-20 07:39] LABS: Bilirubin Neg (Negative); Blood, Urine Negative (Negative); Clarity Clear (Clear); Glucose, Urine (Dipstick) Normal (Negative); Ketone, Urine Negative (Negative); Leukocyte Negative (Negative); Nitrite Negative (Negative); Protein, Urine (Dipstick) 100 mg/dl (Neg-Trace); Urobilinogen Normal mg/dL (Less than 2)
[2023-01-20 07:50] LABS: Lipase 30 U/L (8-78)
[2023-01-20 08:12] LABS: Actual Bicarbonate (HCO3a) 17.8 mEq/L (22-28); Base Excess (BEa) -5.9 mEq/L (-2.0 to +3.0); CO2 Tension 29.7 mmHg (35.0-45.0); Calcium, Ionized (arterial) 1.06 mmol/L (1.12-1.30); Carboxyhemoglobin (COHb) 1.1 gm% (0.0-3.0); O2 Tension (PaO2), arterial 61.2 mmHg (> 70.0); Potassium - ABG Lab 3.9 mmol/L (3.70-5.30); Puncture Site LRA
[2023-01-20 08:15] LABS: ALV-art Gradient 101.315 mmHg (0-20)
[2023-01-20 08:19] LABS: Bacteria/HPF None Seen HPF (None Seen); RBC/HPF None Seen HPF (0-3); Squamous Epithelial 0-3 HPF (0-3); WBC/HPF 0-3 HPF (0-3)
[2023-01-20] MEDS ORDERED: Ondansetron PF 4 MG/2 ML Vial IVP PRN (08:35)
[2023-01-20] MEDS ORDERED: Acetaminophen 650 MG Suppository PR PRN (08:35)
[2023-01-20] MEDS ORDERED: hydrALAZINE 20 MG/ML VIAL SLOW IVP PRN (08:54)
[2023-01-20] MEDS ORDERED: Levothyroxine Sodium 125 MCG TAB PO SCH (09:00)
[2023-01-20] MEDS ORDERED: Levothyroxine Sodium 100 MCG TAB PO SCH (09:00)
[2023-01-20] MEDS: Heparin 5,000 UNITS/ML VIAL SC SCH ×3 (10:38→20:59)
[2023-01-20] MEDS: Citalopram 20 MG TAB PO SCH (11:31)
[2023-01-20] MEDS: Aspirin 81 mg Enteric Coated Tablet PO SCH (11:31)
[2023-01-20] MEDS: Carvedilol 25 MG TAB PO SCH ×2 (11:32→20:58)
[2023-01-20] MEDS: predniSONE 20 MG TAB PO SCH (11:33)
[2023-01-20] MEDS: Ipratropium/Albuterol 3 ML NEB NEB SCH ×2 (13:36→20:04)
[2023-01-20] MEDS: Atorvastatin Calcium 40 MG TAB PO SCH (20:58)
[2023-01-20] MEDS: cefTRIAXone\\ROCEPHIN 1 GM in Sodium Chloride 0.9% 100 ML IVPB SCH (21:00)
[2023-01-20] MEDS: Azithromycin 500 MG in Sodium Chloride 0.9% 250 ML 250 ML IVPB SCH (21:00)
[2023-01-21] MEDS: Ipratropium/Albuterol 3 ML NEB NEB SCH ×4 (02:34→19:13)
[2023-01-21 04:07] LABS: #Monocytes 0.3 10x3/uL (0.0-1.1); %Basophils 0.3 % (0.0-2.0); %Lymphocytes 10.4 % (18.0-47.0); %Monocytes 4.2 % (0.0-10.0); Hemoglobin 9.1 g/dL (12.0-15.5); Mean Corpuscular HGB CONC 31.8 g/dL (32.0-36.0); Mean Corpuscular Hemoglobin 29.9 pg (27.0-33.0); Mean Corpuscular Volume 94.1 fl (81.6-98.3); Mean Platelet Volume 10.6 fl (7.4-10.4); Platelet Count 285 10x3/uL (150-450); RBC Distribution Width 17.8 % (11.5-14.5); Red Blood Cell (RBC) Count 3.04 10x6/uL (3.90-5.03); White Blood Cell (WBC) Count 7.1 10x3/uL (3.5-10.5)
[2023-01-21 04:22] LABS: ALT (SGPT) 7 U/L (8-55); AST (SGOT) 7 U/L (5-34); Albumin 2.7 g/dL (3.4-4.8); Alkaline Phosphatase 63 U/L (40-110); Anion Gap 17 mmol/L (10-20); BUN (Urea Nitrogen) 54 mg/dL (9.8-20.1); Bilirubin, Total 0.3 mg/dL (0.2-1.2); Calc. Creatinine Clearance 15 mL/min (70-130); Calcium 7.5 mg/dL (7.8-10.44); Carbon Dioxide 16 mmol/L (23-31); Chloride 110 mmol/L (98-107); Estimated GFR 14; Globulin 3.2 g/dL (2.4-3.5); Glucose 143 mg/dL (83-110); Potassium 4.3 mmol/L (3.5-5.1); Protein, Total 5.9 g/dL (5.8-8.1); Sodium 139 mmol/L (136-145)
[2023-01-21] MEDS ORDERED: Nitroglycerin 0.4 MG TAB (25 Tab Bottle) ONE (04:58)
[2023-01-21] MEDS ORDERED: Nitroglycerin 2% Ointment 1 INCH/1 GM Packet ONE (04:58)
[2023-01-21] MEDS ORDERED: Nitroglycerin 0.4 MG TAB (25 Tab Bottle) SL SCH (05:00)
[2023-01-21] MEDS ORDERED: Furosemide 100 MG/10 ML VIAL SLOW IVP SCH (05:00)
[2023-01-21] MEDS ORDERED: Nitroglycerin 2% Ointment 1 INCH/1 GM Packet TOP SCH (05:00)
[2023-01-21] MEDS: Furosemide 40 MG/4 ML VIAL ONE ×2 (05:07→05:09)
[2023-01-21 05:52] LABS: Magnesium 2.4 mg/dL (1.6-2.6)
[2023-01-21 05:55] LABS: Troponin I Less than 0.010 ng/mL (< 0.028)
[2023-01-21] MEDS ORDERED: Levothyroxine Sodium 100 MCG TAB PO SCH (06:00)
[2023-01-21] MEDS ORDERED: niCARdipine 25 MG in Sodium Chloride 0.9% 250 ML 250 ML IVPB SCH (06:00)
[2023-01-21] MEDS: methylPREDNISolone Sod Succ 40 MG VIAL IVP SCH ×2 (06:23→12:28)
[2023-01-21 06:33] LABS: ALV-art Gradient 26.825 mmHg (0-20); Actual Bicarbonate (HCO3a) 16.7 mEq/L (22-28); Base Excess (BEa) -6.9 mEq/L (-2.0 to +3.0); CO2 Tension 27.9 mmHg (35.0-45.0); Calcium, Ionized (arterial) 0.93 mmol/L (1.12-1.30); Carboxyhemoglobin (COHb) 1.2 gm% (0.0-3.0); Critical Notified By: CP.PH; O2 Tension (PaO2), arterial 152.2 mmHg (> 70.0); Potassium - ABG Lab 4.4 mmol/L (3.70-5.30); Puncture Site LBA
[2023-01-21] MEDS: Arformoterol 15 MCG/2 ML NEB NEB SCH ×2 (07:58→19:15)
[2023-01-21 08:57] LABS: Troponin I Less than 0.010 ng/mL (< 0.028)
[2023-01-21] MEDS: Carvedilol 25 MG TAB PO SCH ×2 (09:18→21:27)
[2023-01-21] MEDS: Citalopram 20 MG TAB PO SCH (09:18)
[2023-01-21] MEDS: Aspirin 81 mg Enteric Coated Tablet PO SCH (09:18)
[2023-01-21] MEDS: Heparin 5,000 UNITS/ML VIAL SC SCH ×3 (09:19→21:28)
[2023-01-21] MEDS: predniSONE 20 MG TAB PO SCH (09:19)
[2023-01-21] MEDS ORDERED: Pregabalin 50 MG CAP PO SCH (14:30)
[2023-01-21] MEDS: cefTRIAXone\\ROCEPHIN 1 GM in Sodium Chloride 0.9% 100 ML IVPB SCH (20:54)
[2023-01-21] MEDS: Furosemide 40 MG/4 ML VIAL SLOW IVP SCH (20:55)
[2023-01-21] MEDS: Pregabalin 50 MG CAP PO SCH (21:27)
[2023-01-21] MEDS: Azithromycin 500 MG in Sodium Chloride 0.9% 250 ML 250 ML IVPB SCH (21:27)
[2023-01-21] MEDS: Atorvastatin Calcium 40 MG TAB PO SCH (21:54)
[2023-01-21] MEDS: NIFEdipine 10 MG CAP PO SCH (21:55)
[2023-01-22] MEDS: Ipratropium/Albuterol 3 ML NEB NEB SCH ×4 (01:02→19:12)
[2023-01-22 03:43] LABS: #Monocytes 0.3 10x3/uL (0.0-1.1); #Neutrophils 5.7 10x3/uL (1.5-8.4); %Lymphocytes 9.9 % (18.0-47.0); %Monocytes 4.2 % (0.0-10.0); %Neutrophils 85.6 % (40.0-75.0); Hemoglobin 8.6 g/dL (12.0-15.5); Mean Corpuscular HGB CONC 32.2 g/dL (32.0-36.0); Mean Corpuscular Hemoglobin 29.9 pg (27.0-33.0); Mean Corpuscular Volume 92.7 fl (81.6-98.3); Mean Platelet Volume 10.8 fl (7.4-10.4); Platelet Count 276 10x3/uL (150-450); RBC Distribution Width 17.6 % (11.5-14.5); Red Blood Cell (RBC) Count 2.88 10x6/uL (3.90-5.03); White Blood Cell (WBC) Count 6.7 10x3/uL (3.5-10.5)
[2023-01-22 03:58] LABS: Anion Gap 17 mmol/L (10-20); BUN (Urea Nitrogen) 67 mg/dL (9.8-20.1); Calc. Creatinine Clearance 14 mL/min (70-130); Calcium 7.4 mg/dL (7.8-10.44); Carbon Dioxide 18 mmol/L (23-31); Chloride 110 mmol/L (98-107); Estimated GFR 12; Glucose 145 mg/dL (83-110); Sodium 141 mmol/L (136-145)
[2023-01-22] MEDS: Arformoterol 15 MCG/2 ML NEB NEB SCH ×2 (06:50→19:13)
[2023-01-22] MEDS: Furosemide 40 MG/4 ML VIAL SLOW IVP SCH (08:03)
[2023-01-22] MEDS: Citalopram 20 MG TAB PO SCH (08:03)
[2023-01-22] MEDS: Heparin 5,000 UNITS/ML VIAL SC SCH ×3 (08:03→20:11)
[2023-01-22] MEDS: NIFEdipine 10 MG CAP PO SCH ×2 (08:03→21:44)
[2023-01-22] MEDS: predniSONE 20 MG TAB PO SCH (08:04)
[2023-01-22] MEDS: Pregabalin 50 MG CAP PO SCH ×2 (08:04→20:11)
[2023-01-22] MEDS: Carvedilol 25 MG TAB PO SCH ×2 (08:04→20:11)
[2023-01-22] MEDS: Aspirin 81 mg Enteric Coated Tablet PO SCH (08:05)
[2023-01-22] MEDS ORDERED: EPOETIN ALFA-EPBX (ESRD) 4,000 UNIT/ML VIAL SC SCH (15:00)
[2023-01-22] MEDS: Albumin 25% 25 GM/100 ML BOT IVPB SCH ×2 (17:02→23:30)
[2023-01-22] MEDS: cefTRIAXone\\ROCEPHIN 1 GM in Sodium Chloride 0.9% 100 ML IVPB SCH (20:11)
[2023-01-22] MEDS: Atorvastatin Calcium 40 MG TAB PO SCH (20:11)
[2023-01-22] MEDS: Azithromycin 500 MG in Sodium Chloride 0.9% 250 ML 250 ML IVPB SCH (20:12)
[2023-01-23] MEDS: Ipratropium/Albuterol 3 ML NEB NEB SCH ×4 (01:00→20:30)
[2023-01-23 04:16] LABS: #Monocytes 0.6 10x3/uL (0.0-1.1); #Neutrophils 5.8 10x3/uL (1.5-8.4); %Lymphocytes 14.1 % (18.0-47.0); %Monocytes 7.4 % (0.0-10.0); %Neutrophils 77.8 % (40.0-75.0); Hemoglobin 7.9 g/dL (12.0-15.5); Mean Corpuscular HGB CONC 32.5 g/dL (32.0-36.0); Mean Corpuscular Hemoglobin 30.4 pg (27.0-33.0); Mean Corpuscular Volume 93.5 fl (81.6-98.3); Platelet Count 243 10x3/uL (150-450); RBC Distribution Width 17.2 % (11.5-14.5); White Blood Cell (WBC) Count 7.5 10x3/uL (3.5-10.5)
[2023-01-23 04:23] LABS: Anion Gap 17 mmol/L (10-20); BUN (Urea Nitrogen) 68 mg/dL (9.8-20.1); Calc. Creatinine Clearance 14 mL/min (70-130); Calcium 7.5 mg/dL (7.8-10.44); Carbon Dioxide 18 mmol/L (23-31); Chloride 108 mmol/L (98-107); Estimated GFR 13; Glucose 125 mg/dL (83-110); Potassium 3.6 mmol/L (3.5-5.1); Sodium 139 mmol/L (136-145)
[2023-01-23] MEDS: Albumin 25% 25 GM/100 ML BOT IVPB SCH ×4 (05:19→23:50)
[2023-01-23] MEDS: Arformoterol 15 MCG/2 ML NEB NEB SCH ×2 (07:30→20:30)
[2023-01-23] MEDS: Heparin 5,000 UNITS/ML VIAL SC SCH ×3 (07:47→20:36)
[2023-01-23] MEDS: Pregabalin 50 MG CAP PO SCH ×2 (07:48→20:27)
[2023-01-23] MEDS: predniSONE 20 MG TAB PO SCH (07:49)
[2023-01-23] MEDS: Citalopram 20 MG TAB PO SCH (07:50)
[2023-01-23] MEDS: Carvedilol 25 MG TAB PO SCH ×2 (07:50→20:27)
[2023-01-23] MEDS: Aspirin 81 mg Enteric Coated Tablet PO SCH (07:50)
[2023-01-23] MEDS: Ferrous Sulfate 325 MG TAB PO SCH (07:50)
[2023-01-23] MEDS: NIFEdipine 10 MG CAP PO SCH ×2 (07:51→20:28)
[2023-01-23] MEDS ORDERED: QUEtiapine 25 MG TAB PO SCH (20:15)
[2023-01-23] MEDS: Atorvastatin Calcium 40 MG TAB PO SCH (20:27)
[2023-01-23] MEDS: cefTRIAXone\\ROCEPHIN 1 GM in Sodium Chloride 0.9% 100 ML IVPB SCH (22:13)
[2023-01-23] MEDS ORDERED: Nitroglycerin 2% Ointment 1 INCH/1 GM Packet TOP SCH (22:30)
[2023-01-23] MEDS ORDERED: Sodium Bicarbonate Tab 325 MG TAB PO SCH (23:00)
[2023-01-24 04:48] LABS: #Monocytes 0.6 10x3/uL (0.0-1.1); #Neutrophils 6.2 10x3/uL (1.5-8.4); %Lymphocytes 13.7 % (18.0-47.0); %Monocytes 7.3 % (0.0-10.0); %Neutrophils 78.5 % (40.0-75.0); Hemoglobin 7.7 g/dL (12.0-15.5); Mean Corpuscular HGB CONC 33.2 g/dL (32.0-36.0); Mean Corpuscular Hemoglobin 30.9 pg (27.0-33.0); Mean Corpuscular Volume 93.2 fl (81.6-98.3); Mean Platelet Volume 10.8 fl (7.4-10.4); Platelet Count 220 10x3/uL (150-450); RBC Distribution Width 16.8 % (11.5-14.5); Red Blood Cell (RBC) Count 2.49 10x6/uL (3.90-5.03); White Blood Cell (WBC) Count 7.9 10x3/uL (3.5-10.5)
[2023-01-24 05:04] LABS: Anion Gap 18 mmol/L (10-20); BUN (Urea Nitrogen) 71 mg/dL (9.8-20.1); Calc. Creatinine Clearance 15 mL/min (70-130); Carbon Dioxide 19 mmol/L (23-31); Chloride 111 mmol/L (98-107); Estimated GFR 13; Glucose 134 mg/dL (83-110); Potassium 3.6 mmol/L (3.5-5.1); Sodium 144 mmol/L (136-145)
[2023-01-24] MEDS: Albumin 25% 25 GM/100 ML BOT IVPB SCH (05:27)
[2023-01-24] MEDS: Arformoterol 15 MCG/2 ML NEB NEB SCH ×2 (06:29→19:50)
[2023-01-24] MEDS: Ipratropium Bromide 2.5 ml Neb NEB SCH ×3 (06:30→19:50)
[2023-01-24] MEDS: Ipratropium/Albuterol 3 ML NEB NEB SCH ×2 (06:30)
[2023-01-24] MEDS: predniSONE 20 MG TAB PO SCH (08:51)
[2023-01-24] MEDS: Pregabalin 50 MG CAP PO SCH ×2 (08:51→20:05)
[2023-01-24] MEDS: Carvedilol 25 MG TAB PO SCH ×2 (08:52→20:04)
[2023-01-24] MEDS: Citalopram 20 MG TAB PO SCH (08:52)
[2023-01-24] MEDS: Aspirin 81 mg Enteric Coated Tablet PO SCH (08:54)
[2023-01-24] MEDS: Ferrous Sulfate 325 MG TAB PO SCH (08:54)
[2023-01-24] MEDS: Heparin 5,000 UNITS/ML VIAL SC SCH ×3 (08:54→20:05)
[2023-01-24] MEDS: Sodium Bicarbonate Tab 325 MG TAB PO SCH ×2 (08:54→20:05)
[2023-01-24] MEDS: NIFEdipine 10 MG CAP PO SCH ×2 (08:56→20:06)
[2023-01-24 10:42] LABS: Actual Bicarbonate (HCO3a) 21.6 mEq/L (22-28); Base Excess (BEa) -1.8 mEq/L (-2.0 to +3.0); CO2 Tension 31.9 mmHg (35.0-45.0); Calcium, Ionized (arterial) 1.03 mmol/L (1.12-1.30); Carboxyhemoglobin (COHb) 0.3 gm% (0.0-3.0); Hemoglobin (Hb) 10.8 g/dL (12.0-16.0); O2 Tension (PaO2), arterial 79.3 mmHg (> 70.0); Potassium - ABG Lab 3.6 mmol/L (3.70-5.30); Puncture Site LRA; pH, Arterial 7.45 (7.35-7.45)
[2023-01-24 10:44] LABS: ALV-art Gradient 94.725 mmHg (0-20)
[2023-01-24] MEDS: Atorvastatin Calcium 40 MG TAB PO SCH (20:04)
[2023-01-24] MEDS: cefTRIAXone\\ROCEPHIN 1 GM in Sodium Chloride 0.9% 100 ML IVPB SCH (20:05)
[2023-01-25] MEDS: Ipratropium Bromide 2.5 ml Neb NEB SCH ×2 (01:05→06:28)
[2023-01-25 03:56] LABS: #Monocytes 0.6 10x3/uL (0.0-1.1); #Neutrophils 7.1 10x3/uL (1.5-8.4); %Eosinophils 0.1 % (0.0-6.0); %Lymphocytes 16.8 % (18.0-47.0); %Monocytes 6.5 % (0.0-10.0); %Neutrophils 76.2 % (40.0-75.0); Hemoglobin 8.4 g/dL (12.0-15.5); Mean Corpuscular HGB CONC 32.1 g/dL (32.0-36.0); Mean Corpuscular Hemoglobin 30.2 pg (27.0-33.0); Mean Corpuscular Volume 94.2 fl (81.6-98.3); Mean Platelet Volume 11.8 fl (7.4-10.4); Platelet Count 242 10x3/uL (150-450); RBC Distribution Width 16.9 % (11.5-14.5); Red Blood Cell (RBC) Count 2.78 10x6/uL (3.90-5.03); White Blood Cell (WBC) Count 9.3 10x3/uL (3.5-10.5)
[2023-01-25 04:12] LABS: Anion Gap 15 mmol/L (10-20); BUN (Urea Nitrogen) 76 mg/dL (9.8-20.1); Calc. Creatinine Clearance 14 mL/min (70-130); Calcium 8.1 mg/dL (7.8-10.44); Carbon Dioxide 21 mmol/L (23-31); Chloride 111 mmol/L (98-107); Estimated GFR 13; Glucose 146 mg/dL (83-110); Potassium 3.8 mmol/L (3.5-5.1); Sodium 143 mmol/L (136-145)
[2023-01-25] MEDS: Arformoterol 15 MCG/2 ML NEB NEB SCH ×2 (06:28→18:51)
[2023-01-25] MEDS ORDERED: Furosemide 40 MG/4 ML VIAL SLOW IVP SCH (07:15)
[2023-01-25] MEDS: NIFEdipine 10 MG CAP PO SCH ×2 (07:58→20:13)
[2023-01-25] MEDS: Carvedilol 25 MG TAB PO SCH ×2 (07:58→20:11)
[2023-01-25] MEDS: Citalopram 20 MG TAB PO SCH (08:02)
[2023-01-25] MEDS: Aspirin 81 mg Enteric Coated Tablet PO SCH (08:02)
[2023-01-25] MEDS: Pregabalin 50 MG CAP PO SCH (08:03)
[2023-01-25] MEDS: Ferrous Sulfate 325 MG TAB PO SCH (08:04)
[2023-01-25] MEDS: Sodium Bicarbonate Tab 325 MG TAB PO SCH ×2 (08:04→20:11)
[2023-01-25] MEDS: predniSONE 20 MG TAB PO SCH (08:04)
[2023-01-25] MEDS: Heparin 5,000 UNITS/ML VIAL SC SCH ×3 (08:19→20:12)
[2023-01-25] MEDS: Ipratropium/Albuterol 3 ML NEB NEB SCH ×2 (13:13→18:50)
[2023-01-25] MEDS: Pregabalin 25 MG CAP PO SCH (20:11)
[2023-01-25] MEDS: Atorvastatin Calcium 40 MG TAB PO SCH (20:11)
[2023-01-26] MEDS: Ipratropium/Albuterol 3 ML NEB NEB SCH ×3 (01:20→13:20)
[2023-01-26 04:04] LABS: Anion Gap 16 mmol/L (10-20); BUN (Urea Nitrogen) 66 mg/dL (9.8-20.1); Calc. Creatinine Clearance 16 mL/min (70-130); Calcium 8.2 mg/dL (7.8-10.44); Carbon Dioxide 21 mmol/L (23-31); Chloride 109 mmol/L (98-107); Estimated GFR 14; Glucose 108 mg/dL (83-110); Potassium 3.9 mmol/L (3.5-5.1); Sodium 142 mmol/L (136-145)
[2023-01-26 04:07] LABS: #Monocytes 0.6 10x3/uL (0.0-1.1); #Neutrophils 7.8 10x3/uL (1.5-8.4); %Eosinophils 0.1 % (0.0-6.0); %Lymphocytes 10.5 % (18.0-47.0); %Monocytes 6.4 % (0.0-10.0); %Neutrophils 82.7 % (40.0-75.0); Hemoglobin 9.2 g/dL (12.0-15.5); Mean Corpuscular HGB CONC 32.2 g/dL (32.0-36.0); Mean Corpuscular Hemoglobin 30.2 pg (27.0-33.0); Mean Corpuscular Volume 93.8 fl (81.6-98.3); Mean Platelet Volume 11.6 fl (7.4-10.4); Platelet Count 257 10x3/uL (150-450); RBC Distribution Width 16.5 % (11.5-14.5); Red Blood Cell (RBC) Count 3.05 10x6/uL (3.90-5.03); White Blood Cell (WBC) Count 9.4 10x3/uL (3.5-10.5)
[2023-01-26 06:07] VITALS: BMI 25.0
[2023-01-26] MEDS: Arformoterol 15 MCG/2 ML NEB NEB SCH (06:51)
[2023-01-26] MEDS: Citalopram 20 MG TAB PO SCH (08:04)
[2023-01-26] MEDS: Heparin 5,000 UNITS/ML VIAL SC SCH ×2 (08:04→15:52)
[2023-01-26] MEDS: Carvedilol 25 MG TAB PO SCH (08:04)
[2023-01-26] MEDS: NIFEdipine 10 MG CAP PO SCH (08:05)
[2023-01-26] MEDS: Aspirin 81 mg Enteric Coated Tablet PO SCH (08:05)
[2023-01-26] MEDS: Pregabalin 25 MG CAP PO SCH (08:05)
[2023-01-26] MEDS: Sodium Bicarbonate Tab 325 MG TAB PO SCH (08:05)
[2023-01-26] MEDS: Ferrous Sulfate 325 MG TAB PO SCH (08:07)
[2023-01-26] MEDS ORDERED: Furosemide 40 MG/4 ML VIAL SLOW IVP SCH (08:15)
[2023-01-26 09:02] VITALS: BP 186/85; TEMP 98.2
== END 2023-01-26 18:00 | disposition home or self-care (01) | DRG 193 ==
LOC: CSHERS 05:06 → CSHTELE 08:25 → CSHIMCU 01-21 05:09
PROVIDERS: ADMIT Internal Medicine; ATTEND Hospitalist
PROC: 4A133R1 Monitoring of Arterial Saturation, Peripheral, Percutaneous Approach (ICD-10-PCS; principal; 2023-01-20)
PROC: 5A09457 Assistance with Respiratory Ventilation, 24-96 Consecutive Hours, Continuous Positive Airway Pressure (ICD-10-PCS; 2023-01-21)
DX: J18.9 Pneumonia, unspecified organism (principal); J96.21 Acute and chronic respiratory failure with hypoxia; J44.1 Chronic obstructive pulmonary disease with (acute) exacerbation; E87.20 Acidosis, unspecified; I13.0 Hypertensive heart and chronic kidney disease with heart failure and stage 1 through stage 4 chronic kidney disease, or unspecified chronic kidney disease; N17.9 Acute kidney failure, unspecified; I50.32 Chronic diastolic (congestive) heart failure; J44.0 Chronic obstructive pulmonary disease with (acute) lower respiratory infection; E89.0 Postprocedural hypothyroidism; N18.30 Chronic kidney disease, stage 3 unspecified; Z20.822 Contact with and (suspected) exposure to COVID-19; Z86.73 Personal history of transient ischemic attack (TIA), and cerebral infarction without residual deficits; E78.5 Hyperlipidemia, unspecified; Z88.8 Allergy status to other drugs, medicaments and biological substances; Z91.041 Radiographic dye allergy status; Z79.82 Long term (current) use of aspirin; Z79.899 Other long term (current) drug therapy; Z79.890 Hormone replacement therapy; Z87.11 Personal history of peptic ulcer disease; Z98.41 Cataract extraction status, right eye; Z98.42 Cataract extraction status, left eye; Z80.9 Family history of malignant neoplasm, unspecified; Z90.49 Acquired absence of other specified parts of digestive tract; Z90.710 Acquired absence of both cervix and uterus; Z82.49 Family history of ischemic heart disease and other diseases of the circulatory system; Z80.1 Family history of malignant neoplasm of trachea, bronchus and lung
CPT/HCPCS: 36415; 36600; 71045; 80048; 80053; 81003; 81015; 82550; 82805; 83605; 83690; 83735; 83880; 84484; 85025; 87040; 87077; 87149; 93005; 93010; 93306; 94640; 94660; 94760; 94762; 96365; 96366; 96375; J0360; J0456; J0696; J1644; J1940; J1956; J2920; J3490; J7050; J7512; J7611; J7620; P9047; Q5105

== ENCOUNTER 2023-03-17 12:44 | Inpatient (IN) | payer MEDICARE ==
[2023-03-17] MEDS ORDERED: Ondansetron PF 4 MG/2 ML Vial IVP PRN (15:03)
[2023-03-17] MEDS ORDERED: Electrolyte Replacement Protocol 1 EACH IVPB ONE (15:03)
[2023-03-17] MEDS ORDERED: Bumetanide 1 MG/4 ML VIAL IVP SCH (15:30)
[2023-03-17] MEDS ORDERED: NIFEdipine XL 90 MG TAB PO SCH (15:30)
[2023-03-17] MEDS ORDERED: Acetaminophen 650 MG/20.3 ML UDCUP PO PRN (17:50)
[2023-03-17] MEDS: methylPREDNISolone Sod Succ 40 MG VIAL IVP SCH (18:07)
[2023-03-17] MEDS: Pregabalin 25 MG CAP PO SCH (20:11)
[2023-03-17] MEDS: Carvedilol 12.5 MG TAB PO SCH (20:12)
[2023-03-17] MEDS: Atorvastatin Calcium 40 MG TAB PO SCH (20:12)
[2023-03-17] MEDS ORDERED: Pregabalin 50 MG CAP PO SCH (21:00)
[2023-03-17] MEDS ORDERED: Carvedilol 6.25 MG TAB PO SCH (21:00)
[2023-03-18] MEDS: methylPREDNISolone Sod Succ 40 MG VIAL IVP SCH ×4 (00:15→19:21)
[2023-03-18 04:06] LABS: ALT (SGPT) 7 U/L (8-55); AST (SGOT) 14 U/L (5-34); Albumin 3.2 g/dL (3.4-4.8); Alkaline Phosphatase 64 U/L (40-110); Anion Gap 18 mmol/L (10-20); BUN (Urea Nitrogen) 50 mg/dL (9.8-20.1); Bilirubin, Total 0.3 mg/dL (0.2-1.2); Calc. Creatinine Clearance 18 mL/min (70-130); Calcium 8.4 mg/dL (7.8-10.44); Carbon Dioxide 18 mmol/L (23-31); Chloride 108 mmol/L (98-107); Estimated GFR 15; Glucose 145 mg/dL (83-110); Potassium 4.9 mmol/L (3.5-5.1); Protein, Total 6.2 g/dL (5.8-8.1); Sodium 139 mmol/L (136-145)
[2023-03-18 04:34] LABS: Mean Corpuscular HGB CONC 32.7 g/dL (32.0-36.0); Mean Corpuscular Hemoglobin 29.1 pg (27.0-33.0); Mean Platelet Volume 11.5 fl (7.4-10.4); Platelet Count 288 10x3/uL (150-450); RBC Distribution Width 13.9 % (11.5-14.5); Red Blood Cell (RBC) Count 3.44 10x6/uL (3.90-5.03); White Blood Cell (WBC) Count 5.4 10x3/uL (3.5-10.5)
[2023-03-18] MEDS: Levothyroxine Sodium 125 MCG TAB PO SCH (05:35)
[2023-03-18] MEDS: Bumetanide 1 MG/4 ML VIAL IVP SCH ×2 (05:35→16:02)
[2023-03-18 05:42] LABS: MDiff Complete? YES
[2023-03-18 07:06] LABS: Band 2 % (5-11); Lymphocytes 11 % (21-51); Neutrophil 87 % (42-75)
[2023-03-18 07:08] LABS: Hypochromia SLIGHT = 6-15 cells (100X) (0-5/hpf); Microcytosis SLIGHT = 6-15 cells (100X) (0-5/hpf); Platelet Morphology Comment Appears Adequate; Schistocytes SLIGHT = 2-5 cells (100X) (0-1/hpf)
[2023-03-18] MEDS: Aspirin 81 mg Enteric Coated Tablet PO SCH (08:38)
[2023-03-18] MEDS: NIFEdipine XL 60 MG TAB PO SCH (08:38)
[2023-03-18] MEDS: Pregabalin 25 MG CAP PO SCH ×2 (08:38→20:58)
[2023-03-18] MEDS: Carvedilol 12.5 MG TAB PO SCH ×2 (08:38→20:59)
[2023-03-18] MEDS: Heparin 5,000 UNITS/ML VIAL SC SCH ×2 (15:59→20:59)
[2023-03-18] MEDS: Atorvastatin Calcium 40 MG TAB PO SCH (20:59)
[2023-03-19] MEDS: methylPREDNISolone Sod Succ 40 MG VIAL IVP SCH ×4 (01:18→17:29)
[2023-03-19 03:51] LABS: ALT (SGPT) 7 U/L (8-55); AST (SGOT) 11 U/L (5-34); Albumin 3.3 g/dL (3.4-4.8); Alkaline Phosphatase 58 U/L (40-110); Anion Gap 17 mmol/L (10-20); BUN (Urea Nitrogen) 63 mg/dL (9.8-20.1); Bilirubin, Total 0.3 mg/dL (0.2-1.2); Calc. Creatinine Clearance 14 mL/min (70-130); Calcium 8.2 mg/dL (7.8-10.44); Carbon Dioxide 20 mmol/L (23-31); Chloride 108 mmol/L (98-107); Estimated GFR 13; Glucose 157 mg/dL (83-110); Potassium 4.9 mmol/L (3.5-5.1); Protein, Total 6.3 g/dL (5.8-8.1); Sodium 140 mmol/L (136-145)
[2023-03-19 03:57] LABS: #Eosinphils 0.2 10x3/uL (0.0-0.5); #Monocytes 0.2 10x3/uL (0.0-1.1); %Basophils 0.1 % (0.0-2.0); %Eosinophils 1.8 % (0.0-6.0); %Monocytes 2.1 % (0.0-10.0); %Neutrophils 88.8 % (40.0-75.0); Hemoglobin 10.7 g/dL (12.0-15.5); Mean Corpuscular HGB CONC 32.9 g/dL (32.0-36.0); Mean Corpuscular Volume 88.1 fl (81.6-98.3); Mean Platelet Volume 11.2 fl (7.4-10.4); Platelet Count 298 10x3/uL (150-450); RBC Distribution Width 14.2 % (11.5-14.5); Red Blood Cell (RBC) Count 3.69 10x6/uL (3.90-5.03)
[2023-03-19] MEDS: Bumetanide 1 MG/4 ML VIAL IVP SCH ×2 (05:28→14:21)
[2023-03-19] MEDS: Levothyroxine Sodium 125 MCG TAB PO SCH (05:28)
[2023-03-19] MEDS: Heparin 5,000 UNITS/ML VIAL SC SCH ×3 (08:38→21:41)
[2023-03-19] MEDS: Carvedilol 12.5 MG TAB PO SCH ×2 (08:38→21:42)
[2023-03-19] MEDS: Pregabalin 25 MG CAP PO SCH ×2 (08:38→21:42)
[2023-03-19] MEDS: NIFEdipine XL 60 MG TAB PO SCH (08:38)
[2023-03-19] MEDS: Aspirin 81 mg Enteric Coated Tablet PO SCH (08:38)
[2023-03-19] MEDS ORDERED: Ipratropium Bromide 2.5 ml Neb ONE (09:01)
[2023-03-19 10:13] LABS: ALV-art Gradient 84.085 mmHg (0-20); Actual Bicarbonate (HCO3a) 21.6 mEq/L (22-28); Base Excess (BEa) -4.5 mEq/L (-2.0 to +3.0); CO2 Tension 43.1 mmHg (35.0-45.0); Carboxyhemoglobin (COHb) 0.5 gm% (0.0-3.0); Hematocrit-ABG 47 % (36.0-47.0); Hemoglobin (Hb) 16.1 g/dL (12.0-16.0); O2 Tension (PaO2), arterial 90.2 mmHg (> 70.0); Potassium - ABG Lab 4.79 mmol/L (3.70-5.30); Puncture Site RRA; pH, Arterial 7.317 (7.35-7.45)
[2023-03-19] MEDS: cefTRIAXone\\ROCEPHIN 1 GM in Sodium Chloride 0.9% 100 ML IVPB SCH (10:17)
[2023-03-19] MEDS: Ipratropium/Albuterol 3 ML NEB NEB SCH ×4 (11:35→22:46)
[2023-03-19] MEDS: Atorvastatin Calcium 40 MG TAB PO SCH (21:42)
[2023-03-20] MEDS: methylPREDNISolone Sod Succ 40 MG VIAL IVP SCH ×4 (01:20→16:45)
[2023-03-20] MEDS: Ipratropium/Albuterol 3 ML NEB NEB SCH ×6 (02:33→22:52)
[2023-03-20 04:03] LABS: #Monocytes 0.3 10x3/uL (0.0-1.1); #Neutrophils 6.4 10x3/uL (1.5-8.4); %Neutrophils 87.5 % (40.0-75.0); Hemoglobin 9.4 g/dL (12.0-15.5); Mean Corpuscular HGB CONC 32.5 g/dL (32.0-36.0); Mean Corpuscular Hemoglobin 28.7 pg (27.0-33.0); Mean Corpuscular Volume 88.4 fl (81.6-98.3); Platelet Count 246 10x3/uL (150-450); Red Blood Cell (RBC) Count 3.27 10x6/uL (3.90-5.03); White Blood Cell (WBC) Count 7.3 10x3/uL (3.5-10.5)
[2023-03-20 04:07] LABS: ALT (SGPT) 6 U/L (8-55); AST (SGOT) 10 U/L (5-34); Alkaline Phosphatase 49 U/L (40-110); Anion Gap 18 mmol/L (10-20); BUN (Urea Nitrogen) 76 mg/dL (9.8-20.1); Bilirubin, Total 0.2 mg/dL (0.2-1.2); Calc. Creatinine Clearance 13 mL/min (70-130); Calcium 7.8 mg/dL (7.8-10.44); Carbon Dioxide 20 mmol/L (23-31); Chloride 108 mmol/L (98-107); Estimated GFR 12; Globulin 2.7 g/dL (2.4-3.5); Glucose 152 mg/dL (83-110); Potassium 4.7 mmol/L (3.5-5.1); Protein, Total 5.7 g/dL (5.8-8.1); Sodium 141 mmol/L (136-145)
[2023-03-20] MEDS: Bumetanide 1 MG/4 ML VIAL IVP SCH (06:07)
[2023-03-20] MEDS: Levothyroxine Sodium 125 MCG TAB PO SCH (06:07)
[2023-03-20] MEDS: cefTRIAXone\\ROCEPHIN 1 GM in Sodium Chloride 0.9% 100 ML IVPB SCH (08:09)
[2023-03-20] MEDS: Carvedilol 12.5 MG TAB PO SCH ×2 (08:10→21:16)
[2023-03-20] MEDS: Pregabalin 25 MG CAP PO SCH ×2 (08:10→21:16)
[2023-03-20] MEDS: Heparin 5,000 UNITS/ML VIAL SC SCH ×3 (08:10→21:16)
[2023-03-20] MEDS: Aspirin 81 mg Enteric Coated Tablet PO SCH (08:10)
[2023-03-20] MEDS: NIFEdipine XL 60 MG TAB PO SCH (08:10)
[2023-03-20] MEDS ORDERED: EPOETIN ALFA-EPBX (ESRD) 4,000 UNITS/ML VIAL SC SCH (09:00)
[2023-03-20] MEDS: Albumin 25% 25 GM/100 ML BOT IVPB SCH ×2 (11:15→16:45)
[2023-03-20 16:09] VITALS: TEMP 98.5
[2023-03-20] MEDS: Atorvastatin Calcium 40 MG TAB PO SCH (21:17)
[2023-03-21] MEDS: methylPREDNISolone Sod Succ 40 MG VIAL IVP SCH ×4 (01:13→18:06)
[2023-03-21] MEDS: Albumin 25% 25 GM/100 ML BOT IVPB SCH ×2 (01:13→05:35)
[2023-03-21] MEDS: Ipratropium/Albuterol 3 ML NEB NEB SCH ×6 (01:59→22:55)
[2023-03-21 04:27] LABS: #Monocytes 0.3 10x3/uL (0.0-1.1); #Neutrophils 5.8 10x3/uL (1.5-8.4); %Lymphocytes 8.6 % (18.0-47.0); %Monocytes 4.6 % (0.0-10.0); %Neutrophils 85.6 % (40.0-75.0); Hemoglobin 9.5 g/dL (12.0-15.5); Mean Corpuscular HGB CONC 32.9 g/dL (32.0-36.0); Mean Corpuscular Hemoglobin 29.2 pg (27.0-33.0); Mean Corpuscular Volume 88.9 fl (81.6-98.3); Mean Platelet Volume 11.4 fl (7.4-10.4); Platelet Count 228 10x3/uL (150-450); RBC Distribution Width 13.7 % (11.5-14.5); Red Blood Cell (RBC) Count 3.25 10x6/uL (3.90-5.03); White Blood Cell (WBC) Count 6.7 10x3/uL (3.5-10.5)
[2023-03-21 04:46] LABS: ALT (SGPT) 17 U/L (8-55); AST (SGOT) 19 U/L (5-34); Albumin 3.7 g/dL (3.4-4.8); Alkaline Phosphatase 43 U/L (40-110); Anion Gap 17 mmol/L (10-20); BUN (Urea Nitrogen) 86 mg/dL (9.8-20.1); Bilirubin, Total 0.2 mg/dL (0.2-1.2); Calc. Creatinine Clearance 13 mL/min (70-130); Calcium 7.7 mg/dL (7.8-10.44); Carbon Dioxide 19 mmol/L (23-31); Chloride 108 mmol/L (98-107); Estimated GFR 12; Globulin 2.3 g/dL (2.4-3.5); Glucose 163 mg/dL (83-110); Potassium 4.2 mmol/L (3.5-5.1); Sodium 140 mmol/L (136-145)
[2023-03-21] MEDS: Levothyroxine Sodium 125 MCG TAB PO SCH (05:35)
[2023-03-21] MEDS ORDERED: Nitroglycerin 0.4 MG TAB (25 Tab Bottle) SL SCH (06:45)
[2023-03-21] MEDS ORDERED: Bumetanide 1 MG/4 ML VIAL IVP SCH ×2 (06:45→09:00)
[2023-03-21] MEDS: Aspirin 81 mg Enteric Coated Tablet PO SCH (08:09)
[2023-03-21] MEDS: Carvedilol 12.5 MG TAB PO SCH ×2 (08:09→20:27)
[2023-03-21] MEDS: NIFEdipine XL 60 MG TAB PO SCH (08:09)
[2023-03-21] MEDS: Heparin 5,000 UNITS/ML VIAL SC SCH ×3 (08:09→20:27)
[2023-03-21] MEDS: Pregabalin 25 MG CAP PO SCH ×2 (08:09→20:27)
[2023-03-21] MEDS: cefTRIAXone\\ROCEPHIN 1 GM in Sodium Chloride 0.9% 100 ML IVPB SCH (08:10)
[2023-03-21] MEDS: Bumetanide 1 MG/4 ML VIAL IVP SCH (14:57)
[2023-03-21] MEDS: Atorvastatin Calcium 40 MG TAB PO SCH (20:27)
[2023-03-22] MEDS: methylPREDNISolone Sod Succ 40 MG VIAL IVP SCH ×2 (00:29→05:47)
[2023-03-22] MEDS: Ipratropium/Albuterol 3 ML NEB NEB SCH ×4 (02:35→15:04)
[2023-03-22 03:23] LABS: #Monocytes 0.1 10x3/uL (0.0-1.1); #Neutrophils 4.9 10x3/uL (1.5-8.4); %Lymphocytes 7.1 % (18.0-47.0); %Monocytes 1.1 % (0.0-10.0); %Neutrophils 91.2 % (40.0-75.0); Hemoglobin 9.6 g/dL (12.0-15.5); Mean Corpuscular HGB CONC 32.4 g/dL (32.0-36.0); Mean Corpuscular Hemoglobin 28.5 pg (27.0-33.0); Mean Corpuscular Volume 87.8 fl (81.6-98.3); Mean Platelet Volume 11.4 fl (7.4-10.4); Platelet Count 229 10x3/uL (150-450); RBC Distribution Width 13.6 % (11.5-14.5); Red Blood Cell (RBC) Count 3.37 10x6/uL (3.90-5.03); White Blood Cell (WBC) Count 5.3 10x3/uL (3.5-10.5)
[2023-03-22 04:43] LABS: ALT (SGPT) 14 U/L (8-55); AST (SGOT) 12 U/L (5-34); Albumin 3.5 g/dL (3.4-4.8); Alkaline Phosphatase 46 U/L (40-110); Anion Gap 20 mmol/L (10-20); BUN (Urea Nitrogen) 95 mg/dL (9.8-20.1); Bilirubin, Total 0.3 mg/dL (0.2-1.2); Calc. Creatinine Clearance 13 mL/min (70-130); Calcium 7.6 mg/dL (7.8-10.44); Carbon Dioxide 17 mmol/L (23-31); Chloride 108 mmol/L (98-107); Estimated GFR 11; Globulin 2.3 g/dL (2.4-3.5); Glucose 162 mg/dL (83-110); Potassium 4.5 mmol/L (3.5-5.1); Protein, Total 5.8 g/dL (5.8-8.1); Sodium 140 mmol/L (136-145)
[2023-03-22] MEDS: Bumetanide 1 MG/4 ML VIAL IVP SCH ×2 (05:47→16:15)
[2023-03-22] MEDS: Levothyroxine Sodium 125 MCG TAB PO SCH (05:47)
[2023-03-22 06:24] VITALS: BMI 28.8
[2023-03-22] MEDS: NIFEdipine XL 60 MG TAB PO SCH (08:45)
[2023-03-22] MEDS: Pregabalin 25 MG CAP PO SCH (08:46)
[2023-03-22] MEDS: cefTRIAXone\\ROCEPHIN 1 GM in Sodium Chloride 0.9% 100 ML IVPB SCH (08:46)
[2023-03-22] MEDS: Heparin 5,000 UNITS/ML VIAL SC SCH ×2 (08:46→16:15)
[2023-03-22 08:47] VITALS: BP 175/68
[2023-03-22] MEDS: Carvedilol 12.5 MG TAB PO SCH (08:47)
[2023-03-22] MEDS: Aspirin 81 mg Enteric Coated Tablet PO SCH (08:47)
[2023-03-22] MEDS ORDERED: methylPREDNISolone Sod Succ 40 MG VIAL IVP SCH (12:00)
== END 2023-03-22 18:10 | disposition hospice, home (50) | DRG 291 ==
LOC: CSHIMCU 13:56 → CSHTELE 03-18 11:55 → CSHICU 03-21 10:32
PROVIDERS: ADMIT Internal Medicine; ATTEND Family Medicine
DX: I13.0 Hypertensive heart and chronic kidney disease with heart failure and stage 1 through stage 4 chronic kidney disease, or unspecified chronic kidney disease (principal); I50.31 Acute diastolic (congestive) heart failure; D63.1 Anemia in chronic kidney disease; J96.01 Acute respiratory failure with hypoxia; J96.02 Acute respiratory failure with hypercapnia; I16.1 Hypertensive emergency; J44.1 Chronic obstructive pulmonary disease with (acute) exacerbation; N17.9 Acute kidney failure, unspecified; Z66 Do not resuscitate; I25.10 Atherosclerotic heart disease of native coronary artery without angina pectoris; J44.9 Chronic obstructive pulmonary disease, unspecified; E78.5 Hyperlipidemia, unspecified; N18.9 Chronic kidney disease, unspecified; Z88.8 Allergy status to other drugs, medicaments and biological substances; Z86.73 Personal history of transient ischemic attack (TIA), and cerebral infarction without residual deficits; Z91.041 Radiographic dye allergy status; Z79.82 Long term (current) use of aspirin; Z79.899 Other long term (current) drug therapy; Z90.49 Acquired absence of other specified parts of digestive tract; Z90.710 Acquired absence of both cervix and uterus
CPT/HCPCS: 36415; 36600; 71045; 80053; 82805; 85025; 94640; 94660; 94760; 94762; J0696; J1644; J2920; J3490; J7611; J7620; P9047; Q5105